=== PATIENT | male | born 1980 | race American Indian/Alaskan Native ===

== ENCOUNTER 2016-11-01 15:54 | Emergency (ER) | payer SELFPAY ==
[2016-11-01] MEDS ORDERED: NORCO 7.5/325 PO ONE (17:59)
--- NOTE | 2016-11-01 19:03 | Emergency Department Report ---
ED Extremity Problem HPI - General Chief complaint: Extremity Problem,Nontraumatic Stated complaint: RT LEG PAIN Time Seen by Provider: 11/01/16 17:49 Source: patient Mode of arrival: Wheelchair Limitations: No Limitations - History of Present Illness Initial comments: Patient is a 36-year-old male who presents due to left thigh pain times one week , patient denies any injury. Patient denies any recent long distance traveling , any history of DVT, any history of recent surgery, any history of malignancy. Patient denies any swelling or redness to the left thigh MD Complaint: extremity pain Onset/Timin -: week(s) Location: left, lower extremity (left thigh) History of Same: No -: Yes myalgia Radiation: none Severity scale (0 -10): 10 Quality: sharp Consistency: intermittent Improves with: immobilization Worsens with: weight bearing, walking Associated Symptoms: denies other symptoms - Related Data Previous Rx's Medication Instructions Recorded Last Taken Type Ibuprofen [Motrin 800 MG tab] 800 mg PO Q8HR PRN #30 tablet 11/01/16 Unknown Rx traMADol [Ultram 50 MG tab] 50 mg PO Q6HR PRN #15 tablet 11/01/16 Unknown Rx Allergies Allergy/AdvReac Type Severity Reaction Status Date / Time shellfish derived Allergy Rash Verified 11/01/16 16:36 ED Review of Systems ROS: Stated complaint: RT LEG PAIN Other details as noted in HPI Comment: All other systems reviewed and negative Constitutional: no symptoms reported. denies: chills, diaphoresis, fever, malaise, weakness Eyes: denies: eye pain, eye discharge, vision change ENT: denies: ear pain, throat pain, dental pain, hearing loss, epistaxis Respiratory: no symptoms reported. denies: cough, orthopnea, shortness of breath, SOB with exertion, SOB at rest, stridor, wheezing Cardiovascular: denies: chest pain, palpitations, dyspnea on exertion, orthopnea , edema, syncope, paroxysmal nocturnal dyspnea Endocrine: no symptoms reported Gastrointestinal: denies: abdominal pain, nausea, vomiting, diarrhea, constipation Genitourinary: denies: urgency, dysuria, frequency, hematuria, discharge Musculoskeletal: myalgia (left thigh pain) Skin: denies: rash Neurological: denies: headache, weakness, numbness, paresthesias, confusion ED Past Medical Hx - Past Medical History Previous Medical History?: No - Surgical History Past Surgical History?: No - Social History Smoking Status: Current Every Day Smoker Substance Use Type: Alcohol - Medications Home Medications: Home Medications Medication Instructions Recorded Confirmed Last Taken Type Ibuprofen [Motrin 800 MG tab] 800 mg PO Q8HR PRN #30 tablet 11/01/16 Unknown Rx traMADol [Ultram 50 MG tab] 50 mg PO Q6HR PRN #15 tablet 11/01/16 Unknown Rx ED Physical Exam - General Limitations: No Limitations General appearance: alert, in no apparent distress - Head Head exam: Present: atraumatic, normocephalic, normal inspection - Eye Eye exam: Present: normal appearance, PERRL, EOMI Pupils: Present: normal accommodation - Neck Neck exam: Present: normal inspection, full ROM. Absent: tenderness, meningismus - Respiratory Respiratory exam: Present: normal lung sounds bilaterally. Absent: respiratory distress, wheezes, rales, rhonchi, stridor - Cardiovascular Cardiovascular Exam: Present: regular rate, normal rhythm, normal heart sounds - GI/Abdominal GI/Abdominal exam: Present: soft, normal bowel sounds. Absent: distended, tenderness, guarding, rebound, rigid - Expanded Lower Extremity Exam Left Hip exam: Present: full ROM, tenderness (pain with interneal and external rotation), external rotation, internal rotation. Absent: swelling, abrasion, laceration, ecchymosis, deformity, crepidus, dislocation, erythema, shortening, pelvic stability Upper Leg exam: Present: tenderness. Absent: swelling, abrasion, laceration, ecchymosis, deformity, crepidus, dislocation, erythema Knee exam: Present: normal inspection, full ROM. Absent: tenderness, swelling, laceration, ecchymosis, deformity, crepidus, dislocation, erythema, effusion Lower Leg exam: Present: normal inspection, full ROM. Absent: tenderness Ankle exam: Present: normal inspection, full ROM. Absent: tenderness Foot/Toe exam: Present: normal inspection, full ROM. Absent: tenderness Neuro vascular tendon exam: Present: no vascular compromise Gait: Positive: observed and limited by pain - Back Exam Back exam: Present: normal inspection, full ROM. Absent: tenderness, CVA tenderness (R), CVA tenderness (L), muscle spasm, paraspinal tenderness, vertebral tenderness - Neurological Exam Neurological exam: Present: alert, oriented X3, normal gait - Psychiatric Psychiatric exam: Present: normal affect, normal mood - Skin Skin exam: Present: warm, dry, intact ED Course Vital Signs 11/01/16 16:37 Temperature 98.2 F Pulse Rate 85 Respiratory 20 Rate Blood Pressure 126/83 O2 Sat by Pulse 99 Oximetry ED Medical Decision Making - Radiology Data Radiology results: image reviewed interpreted by me: X-ray of the left hip did not show any acute osseous findings - Medical Decision Making Patient was in no acute distress, patient had tenderness with palpation of the left medial thigh and left gluteal muscles. He was no erythema, edema. x-ray of the left hip did not show any acute osseous findings. Venous Doppler of the left lower extremity was ordered as an ambulatory order. Patient was told to return to the ER tomorrow to have the venous Doppler performed. Patient verbalizes understanding. Patient was given a prescription for tramadol and ibuprofen. - Differential Diagnosis muscle spasms, thigh strain, DVT Critical care attestation.: If time is entered above; I have spent that time in minutes in the direct care of this critically ill patient, excluding procedure time. ED Disposition Clinical Impression: Left thigh pain Disposition: TO HOME OR SELFCARE Is pt being admited?: No Does the pt Need Aspirin: No Condition: Good Instructions: Arthralgia (ED) Additional Instructions: Return tomorrow morning to have a venous Doppler performed outpatient. Take ibuprofen 800 mg every 8 hours as needed for pain, take tramadol 1 tablet every 6 hours as needed for severe pain. If the ultrasound of your left thigh is normal tomorrow, you can follow-up with provided academic affairs specialist Prescriptions: Ibuprofen [Motrin 800 MG tab] 800 mg PO Q8HR PRN #30 tablet PRN Reason: Pain traMADol [Ultram 50 MG tab] 50 mg PO Q6HR PRN #15 tablet PRN Reason: Pain Referrals: PRIMARY CAREMD [Primary Care Provider] - 3-5 Days IRENE US MD [Staff Physician] - 3-5 Days Time of Disposition: 19:01
[2016-11-01 19:23] VITALS: BP 125/86
--- NOTE | 2016-11-02 09:04 | XRay Report ---
LEFT HIP RADIOGRAPHS INDICATION: Left inner thigh pain. COMPARISON: None similar at this institution. FINDINGS: An AP pelvic radiograph with frog-leg projections of the left hip demonstrate intact articulation. Possible hip joint space narrowing and acetabular prominence/spurring, left more than right. Imaged bilateral SI joints appear intact. Nonobstructive bowel gas pattern. Few pelvic phleboliths. CONCLUSION: No acute radiographic abnormality with hip degenerative changes not excluded. Please correlate. Thank you for the opportunity to participate in this patient's care.
== END 2016-11-01 19:28 | disposition home or self-care (01) ==
LOC: ED 15:54
DX: M79.652 Pain in left thigh (principal); F17.200 Nicotine dependence, unspecified, uncomplicated; Z91.013 Allergy to seafood
CPT/HCPCS: 99283